=== PATIENT | female | born 1995 ===

== ENCOUNTER 2021-06-01 21:48 | Emergency (ER) | payer SELFPAY ==
--- NOTE | 2021-06-01 21:58 | NUR ---
RESCUE 80 WAS DROPPING OF A PATIENT AND WAS ABLE TO REMOVE EARRING IN THE PATIENT EAR. PATIENT DID NOT WANT TO BE TRIAGED OR SEEN BY ERMD ANYMORE. LEFT WITHOUT BEING TRIAGED OR BEEING SEEN BY ERMD.
== END 2021-06-01 22:01 | disposition left against medical advice (07) ==
LOC: ER 21:57
DX: Z53.21 Procedure and treatment not carried out due to patient leaving prior to being seen by health care provider (principal)

== ENCOUNTER 2022-05-27 17:29 | Emergency (ER) | payer BC ==
[~2022-05-27] VITALS: Ht 157.5 cm; Wt 68.0 kg
[2022-05-27 18:22] LABS: HEMATOCRIT 40.1 % (31.2-41.9); MEAN CORPUSCULAR HEMOGLOBIN 25.6 uug (24.7-32.8); MEAN CORPUSCULAR VOLUME 77.8 fL (75.5-95.3); PLATELET COUNT (AUTO) 274 K/uL (179-408)
[2022-05-27] MEDS ORDERED: IV NORMAL SALINE 250 ML IV ONE (18:31)
[2022-05-27] MEDS ORDERED: IOHEXOL 300MG/ML 100 ML INFUS..BTL ONE (18:31)
[2022-05-27] MEDS ORDERED: SWABABLE VALVE TRANSFER SET EA MC ONE (18:31)
[2022-05-27 18:32] LABS: CREATININE 0.7 mg/dL (0.6-1.3); POTASSIUM 3.6 mmol/L (3.5-5.1)
[2022-05-27 18:35] LABS: *URINE HCG, QUAL NEGATIVE (NEGATIVE)
--- NOTE | 2022-05-27 19:15 | NUR ---
Received report from LAMBERT Oneill.
[2022-05-27] MEDS ORDERED: LIDOCAINE 1%-EPI 1:100,000 20 ML VIAL ONE (19:38)
--- NOTE | 2022-05-27 19:43 | NUR ---
Mother at bedside.
[2022-05-27] MEDS ORDERED: LIDOCAINE 1%-EPI 1:100,000 20 ML VIAL IJ ONE (19:45)
--- NOTE | 2022-05-27 20:19 | NUR ---
LAMBERT Holt is chaperoning Dr. Simpson at bedside.
[2022-05-27] MEDS ORDERED: SULF1TAB48 PO (20:36)
[2022-05-27] MEDS ORDERED: IBUP-1957 PO (20:36)
[2022-05-27] MEDS ORDERED: IBUPROFEN 800 MG TABLET ONE (20:44)
[2022-05-27] MEDS ORDERED: SULFAMETH/TRIMETH 800/160 MG TABLET PO ONE (20:45)
[2022-05-27] MEDS ORDERED: IBUPROFEN 800 MG TABLET PO ONE (20:45)
[2022-05-27] MEDS ORDERED: SULFAMETH/TRIMETH 800/160 MG TABLET ONE (20:45)
--- NOTE | 2022-05-27 20:50 | NUR ---
Patient discharged to home in stable condition. A/O x 4. NAD noted. Ambulatory with a slow steady gait. Written and verbal after care instructions given. Patient verbalizes understanding of instructions. Stressed follow up or return to ER for worsening s/s.
[2022-05-27 20:53] VITALS: BP 121/80
== END 2022-05-27 20:50 | disposition home or self-care (01) ==
LOC: ER 17:37
DX: L05.01 Pilonidal cyst with abscess (principal)
CPT/HCPCS: 36415; 72193; 84703; 85025; A4663; J3490; Q9967